=== PATIENT | male | born 1955 | race Caucasian/White ===

== ENCOUNTER → 2025-04-17 | Outpatient (BNVA) | payer MEDICARE, BC, SELFPAY | END | disposition home or self-care (01) | PROVIDERS: PCP Internal Medicine; Referring Provider Internal Medicine; Visit Provider Urology | DX: Z48.816 Encounter for surgical aftercare following surgery on the genitourinary system (principal); N35.919 Unspecified urethral stricture, male, unspecified site; Z46.6 Encounter for fitting and adjustment of urinary device; Z80.42 Family history of malignant neoplasm of prostate | CPT/HCPCS: 99212; G0463 ==